=== PATIENT | female | born 1995 | race Caucasian/White ===

== ENCOUNTER 2025-03-06 14:07 | Emergency (ER) | payer SELFPAY ==
[~2025-03-06] VITALS: Ht 157.5 cm; Wt 77.0 kg
[2025-03-06 14:17] VITALS: O2SAT 98
[2025-03-06 15:22] LABS: BASOPHILS % 0.6 % (0.0-2.0); EOSINOPHILS % 1.4 % (0.0-5.0); HEMATOCRIT. 37.8 % (36.0-48.0); HEMOGLOBIN. 12.5 g/dL (12.0-16.0); LYMPHOCYTES % 33.0 % (20.0-50.0); MEAN PLATELET VOLUME 8.8 fl (7.4-10.4); MONOCYTES % 7.2 % (2.0-8.0); NEUTROPHILS % 57.8 % (40.0-76.0); PLATELET 319 x1000/uL (130-400); RED BLOOD CELL COUNT 4.09 mill/uL (4.2-5.4); RED CELL DISTRIBUTION WIDTH 13.7 % (11.6-14.6)
[2025-03-06 15:36] LABS: CREATININE 0.7 mg/dL (0.6-1.0); UREA NITROGEN BLOOD 12 mg/dL (9-23)
[2025-03-06 15:40] LABS: HCG SCREEN NEGATIVE
[2025-03-06 17:48] VITALS: BP 113/69; PULSE 71; RESP 16; TEMP 36.8; O2SAT 100
== END 2025-03-06 17:53 | disposition home or self-care (01) ==
LOC: ER 14:07
DX: O03.9 Complete or unspecified spontaneous abortion without complication (principal); R10.2 Pelvic and perineal pain; Z3A.01 Less than 8 weeks gestation of pregnancy
CPT/HCPCS: 36415; 76801; 80048; 84702; 84703; 85025; 86850; 86900; 99284